=== PATIENT | male | born 1970 | race Caucasian/White ===

== ENCOUNTER 2021-02-26 04:16 | Inpatient (IN) | payer BC, OTHER ==
[2021-02-26] VITALS (16 sets, daily range): BP systolic 110–152; BP diastolic 70–105
[~2021-02-26] VITALS: Ht 185.4 cm; Wt 100.0 kg
--- NOTE | 2021-02-26 04:40 | NUR ---
PER REACH REPORT: PT GIVEN 15 MCG OF [place] AT 0403 2 GRAMS OF ANCEF AT 2137 ON TDAP BOOSTER 1 L OF NS NURSE IN FLUSHING HAD REPORTED POSSIBLE LES IN PT POLICE REPORT FILED. CASE NUMBER IS [id number] [facility] HAS ALL OF PATIENT'S PERSONAL BELONGINGS EVIDENCE EXCEPT HIS ID AND HAT GIRLFRIEND HAS PT'S PERMISSION TO RECIEVE MEDICAL UPDATES
[2021-02-26] MEDS ORDERED: FLUT1DIS INH (05:06)
[2021-02-26] MEDS ORDERED: OMEP20TA5 PO (05:06)
[2021-02-26] MEDS ORDERED: LORA10TA65 PO (05:06)
[2021-02-26] MEDS ORDERED: AMLO5TAB4 PO (05:06)
[2021-02-26 05:19] LABS: ALBUMIN 3.7 G/DL (3.4-5.0); ANION GAP 12 (8-16); BASOPHILS % (AUTO) 0.2 % (0-1); BLOOD UREA NITROGEN 13 MG/DL (7-18); BUN/CREATININE RATIO 13.8 (5.4-32.0); CHLORIDE 107 MMOL/L (99-107); CREATININE 0.94 MG/DL (0.60-1.10); EOSINOPHILS % (AUTO) 0.3 % (0-6); GLUCOSE 123 MG/DL (70-104); HEMATOCRIT 41.6 % (42.0-52.0); HEMOGLOBIN 14.1 g/dl (14.0-17.9); LYMPHOCYTES # (AUTO) 2.2 X10'3 (1.1-4.8); LYMPHOCYTES % (AUTO) 22.6 % (21-51); MEAN CORPUSCULAR HEMOGLOBIN 29.1 PG (27.0-31.0); MEAN CORPUSCULAR HGB CONC 33.9 g/dL (33.0-36.5); MEAN CORPUSCULAR VOLUME 85.7 FL (78-98); MEAN PLATELET VOLUME 7.5 FL (7.4-10.4); MONOCYTES # (AUTO) 0.8 X10'3 (0-0.9); MONOCYTES % (AUTO) 8.1 % (2-12); NEUTROPHILS # (AUTO) 6.7 X10'3 (1.8-7.7); NEUTROPHILS % (AUTO) 68.8 % (42-75); PLATELET COUNT 264 X10'3 (140-440); POTASSIUM 4.2 MMOL/L (3.5-5.1); RED BLOOD COUNT 4.85 X10'6 (4.70-6.10); RED CELL DISTRIBUTION WIDTH 13.6 % (11.5-14.5); SODIUM 142 MMOL/L (135-145); TOTAL CARBON DIOXIDE 23.5 MMOL/L (24-32); WHITE BLOOD COUNT 9.7 X10'3 (4.5-11.0); eGFR 85 ML/MIN
[2021-02-26] MEDS ORDERED: mag hydrox/Alum hydrox/simeth 30ml oral suspension PO PRN (05:25)
[2021-02-26] MEDS ORDERED: acetaminophen 325mg tablet PO PRN ×2 (05:25→12:10)
[2021-02-26] MEDS ORDERED: potassium Cl 20 mEq SR tablet PO PRN ×2 (05:25)
[2021-02-26] MEDS ORDERED: potassium Cl 40MEQ/1/2NS 520ml 520 ML IV PRN ×2 (05:25)
[2021-02-26] MEDS ORDERED: magnesium hydroxide 30ml (MOM) UD suspension PO PRN ×2 (05:25→12:10)
[2021-02-26 05:30] LABS: PARTIAL THROMBOPLASTIN TIME 20 SECONDS (22-32)
[2021-02-26] MEDS: morphine 2 MG/ML inj. syringe IV PRN ×6 (06:10→23:53)
[2021-02-26] MEDS: normal saline 1000ml 1,000 ML IV SCH ×2 (06:13→15:25)
[2021-02-26] MEDS ORDERED: midazolam 1 mg/ML 2ml injection ONE (07:00)
[2021-02-26] MEDS ORDERED: fentaNYL /PF 50mcg/ml 5ml ampule ONE (07:02)
[2021-02-26] MEDS ORDERED: 0.9 % SODIUM CHLORIDE 10 ML VIAL ONE ×2 (07:19)
[2021-02-26] MEDS ORDERED: ceFAZolin 1000mg inj ONE ×2 (07:19)
[2021-02-26] MEDS ORDERED: rocuronium 10mg/ml inj IV ONE (07:19)
[2021-02-26] MEDS ORDERED: LIDOcaine 2% (20mg/ml) 5ml vial ONE (07:19)
[2021-02-26] MEDS ORDERED: propofol inj 20 ML IV ONE (07:19)
[2021-02-26] MEDS ORDERED: ondansetron/PF 4mg/2ml inj ONE (07:22)
[2021-02-26] MEDS ORDERED: dexamethasone sod phosphate 4mg/ml inj. ONE (07:22)
[2021-02-26] MEDS ORDERED: meperidine/PF 25mg/ml syringe IV PRN ×3 (07:25)
[2021-02-26] MEDS ORDERED: labetalol 20mg/4ml (5mg/ml) syringe IV PRN (07:25)
[2021-02-26] MEDS ORDERED: ringers solution, lacted 1,000 ML IV SCH (07:25)
[2021-02-26] MEDS ORDERED: hydrALAZINE 20mg/ml inj. IV PRN (07:25)
[2021-02-26] MEDS ORDERED: ipratropium/albuterol 3ml nebule IH ONE (07:25)
[2021-02-26] MEDS ORDERED: morphine 2 MG/ML inj. syringe IV PRN (07:25)
[2021-02-26] MEDS ORDERED: morphine 4 MG/ML inj SYRINge IV PRN (07:25)
[2021-02-26] MEDS ORDERED: proCHLORperazine 10 MG/2 ml inj IV PRN (07:25)
[2021-02-26] MEDS ORDERED: ondansetron/PF 4mg/2ml inj IV PRN (07:25)
[2021-02-26] MEDS ORDERED: ketorolac trometh. 30mg/ml inj. IV ONE (07:25)
[2021-02-26] MEDS ORDERED: acetaminophen 1,000mg/100ml IV 100 ML IV PRN (07:25)
[2021-02-26] MEDS ORDERED: BUPIVAcaine/PF 2.5mg/ml (0.25%) 10ml vial ONE (07:39)
[2021-02-26] MEDS ORDERED: PANT40TA54 PO (07:51)
[2021-02-26] MEDS ORDERED: neostigmine methylsulfate 1 MG/ML 10ml vial ONE (07:55)
[2021-02-26] MEDS ORDERED: glycopyrrolate 0.2mg/ml inj ONE (07:55)
[2021-02-26] MEDS ORDERED: amLODIPine 5mg tablet PO SCH (08:00)
[2021-02-26] MEDS: K and/or MAG REPLACEMENT MC SCH ×2 (08:00→20:00)
--- NOTE | 2021-02-26 08:02 | NUR ---
FROM OR ON GURNEY. NO RESP DISTRESS. WIGGLING ALL OVER GURNEY. REORIENTED TO SITUATION. NO PAIN, BUT IS SHIVERING, SO MEDICATED WITH DEMEROL. DRESSING TO LEFT HAND CDI. DSG TO LEFT UPPER ARM ON BOTH AND AND POST SIDES. TELFA, WITH ONE SPOT OF OLD BLOOD PRESENT. SKIN WARM, DRY. VSS, IV PATENT. HEPLOCK PRESENT. DR SANTAMARIA AT BEDSIDE.
--- NOTE | 2021-02-26 08:27 | NUR ---
ASSUME CARE PT AROUSABLE TO NAME STATES HAVING PAIN TO LEFT HAND 12/08 MED WITH DEMEROL 25MG IV, DRESSING TO LEFT HAND CDI, DRESSING TO LEFT BICEP HAS SMALL DRESSING WITH SCANT AMT DRAINAGE ON DRESSING CDI. +CMS TO LEFT FINGERS AND HAND. NO DISTRESS CONT TO MONITOR. Addendum: 02/26/21 at 4333 by Lorraine Gold RN Amended: Links added.
[2021-02-26] MEDS: ondansetron/PF 4mg/2ml inj IV PRN ×2 (08:46→10:08)
--- NOTE | 2021-02-26 09:03 | NUR ---
PT MORE AWAKE VSS NO DISTRESS STATES COMFORTABLE EZEKIEL POS MEETS CRITERIA TO DC TO ROOM REPORT CALLED. Addendum: 02/26/21 at 0905 by Lorraine Gold RN Amended: Links added.
--- NOTE | 2021-02-26 09:46 | NUR ---
Page Sent PAGER ID: [phone] MESSAGE: [phone] Pardo, do you want the pt on a regular diet post op?
--- NOTE | 2021-02-26 09:46 | NUR ---
Patient in room ED 9. I have received report from Lorraine Gonzalez rn and had the opportunity to ask questions and assume patient care.
[2021-02-26] MEDS: ceFAZolin/D5W- 1GM premix 50 ML IV SCH ×3 (11:31→23:53)
[2021-02-26] MEDS: docusate sod 100mg capsule PO SCH ×2 (11:35→20:54)
[2021-02-26] MEDS ORDERED: bisacodyl 10mg suppository rectal RC PRN (12:10)
[2021-02-26] MEDS ORDERED: HYDROcodone/acetaminophen 10/325mg tab PO PRN ×2 (12:10)
[2021-02-26] MEDS ORDERED: diphenhydrAMINE 25mg capsule PO PRN (12:10)
[2021-02-26] MEDS ORDERED: albuterol 2.5 MG/3 ML nebule NEB PRN (12:15)
[2021-02-26] MEDS ORDERED: propranolol 10mg tablet PO ONE ×2 (12:40→12:55)
[2021-02-26] MEDS ORDERED: propranolol 10mg tablet PO PRN ×2 (12:40→12:54)
[2021-02-26] MEDS: loratadine 10mg tablet PO SCH (13:00)
[2021-02-26] MEDS ORDERED: gabapentin 100mg capsule PO SCH (13:00)
--- NOTE | 2021-02-26 15:16 | NUR ---
Page Sent PAGER ID: [phone] MESSAGE: Jumana Pardo pt has morphine for pain and says its not working. also says he doesn't like [place] and it doesn't work fro him either that is ordered. can I get something else for PO pain med?
--- NOTE | 2021-02-26 15:24 | NUR ---
pt refused [place] PO only wants morphine, paged the doctor about getting something else for pain. i will give 2 mg morphine per pt the 1 mg wasn't working.
--- NOTE | 2021-02-26 18:45 | NUR ---
Patient in room JOSE 353. I have received report from CASSIE Garcia and had the opportunity to ask questions and assume patient care. pt c/o pain, sitting up in bed sig other at bedside. new orders . Addendum: 02/26/21 at 1930 by Love Melissa RN Amended: Links added.
--- NOTE | 2021-02-26 18:53 | NUR ---
Problems reprioritized. Patient report given, questions answered & plan of care reviewed with johnathan MATTHEWS.
[2021-02-26] MEDS: oxyCODONE/APAP 10/325mg tablet PO PRN (19:20)
[2021-02-26] MEDS: ketorolac tromethamine 15mg/ml inj. IV PRN (19:21)
--- NOTE | 2021-02-26 19:32 | NUR ---
csm to fingers some tingling numbness, moves fingers cap refill wnl. nunez medications given, dinner arrived. Addendum: 02/26/21 at 1933 by Love Melissa RN Amended: Links added.
[2021-02-26] MEDS ORDERED: budesonide 0.5mg/2ml UD nebule IH SCH (20:00)
[2021-02-26] MEDS: gabapentin 100mg capsule PO SCH (20:54)
[2021-02-26] MEDS: lactobacillus rhamnosus 10,000 MMU CELLS/CAPSULE PO SCH (20:54)
[2021-02-26] MEDS: ascorbic acid 500mg tablet PO SCH (20:54)
[2021-02-26] MEDS ORDERED: sennosides 8.6mg tablet PO SCH (21:00)
[2021-02-27] MEDS: ketorolac tromethamine 15mg/ml inj. IV PRN ×2 (02:20→08:26)
[2021-02-27] MEDS: oxyCODONE/APAP 10/325mg tablet PO PRN ×2 (02:20→08:26)
[2021-02-27] MEDS: morphine 2 MG/ML inj. syringe IV PRN ×3 (02:26→07:31)
--- NOTE | 2021-02-27 02:31 | NUR ---
PT ABLE TO MOVE FINGERS, HAS LESS TINGLING AND MORE SENSATION. KEEPING ELEVATED ON X3 PILLOWS. Addendum: 02/27/21 at 0232 by Love Melissa RN Amended: Links added.
--- NOTE | 2021-02-27 06:12 | NUR ---
Problems reprioritized. Patient report given, questions answered & plan of care reviewed with CASSIE MARES. Addendum: 02/27/21 at 0613 by Love Melissa RN Amended: Links added.
[2021-02-27 06:24] LABS: BASOPHILS % (AUTO) 0.1 % (0-1); EOSINOPHILS % (AUTO) 0.1 % (0-6); HEMATOCRIT 39.7 % (42.0-52.0); HEMOGLOBIN 13.3 g/dl (14.0-17.9); LYMPHOCYTES # (AUTO) 1.8 X10'3 (1.1-4.8); LYMPHOCYTES % (AUTO) 14.3 % (21-51); MEAN CORPUSCULAR HEMOGLOBIN 28.7 PG (27.0-31.0); MEAN CORPUSCULAR HGB CONC 33.5 g/dL (33.0-36.5); MEAN CORPUSCULAR VOLUME 85.9 FL (78-98); MEAN PLATELET VOLUME 7.7 FL (7.4-10.4); MONOCYTES # (AUTO) 1.3 X10'3 (0-0.9); MONOCYTES % (AUTO) 10.2 % (2-12); NEUTROPHILS # (AUTO) 9.7 X10'3 (1.8-7.7); NEUTROPHILS % (AUTO) 75.3 % (42-75); PLATELET COUNT 263 X10'3 (140-440); RED BLOOD COUNT 4.63 X10'6 (4.70-6.10); RED CELL DISTRIBUTION WIDTH 13.9 % (11.5-14.5); WHITE BLOOD COUNT 12.9 X10'3 (4.5-11.0)
[2021-02-27 07:00] VITALS: BP 116/83
[2021-02-27 07:04] LABS: ALANINE AMINOTRANSFERASE 19 U/L (12-78); ALBUMIN 3.4 G/DL (3.4-5.0); ALKALINE PHOSPHATASE 62 IU/L (46-116); ANION GAP 12 (8-16); ASPARTATE AMINO TRANSFERASE 20 U/L (10-37); BILIRUBIN,TOTAL 0.9 MG/DL (0.1-1.0); BLOOD UREA NITROGEN 19 MG/DL (7-18); BUN/CREATININE RATIO 15.6 (5.4-32.0); CALCIUM 8.6 MG/DL (8.5-10.1); CHLORIDE 104 MMOL/L (99-107); CREATININE 1.22 MG/DL (0.60-1.10); GLUCOSE 127 MG/DL (70-104); POTASSIUM 4.3 MMOL/L (3.5-5.1); SODIUM 140 MMOL/L (135-145); TOTAL CARBON DIOXIDE 24.2 MMOL/L (24-32); TOTAL PROTEIN 6.8 G/DL (6.4-8.2); eGFR 63 ML/MIN
[2021-02-27] MEDS: lactobacillus rhamnosus 10,000 MMU CELLS/CAPSULE PO SCH (07:35)
[2021-02-27] MEDS: docusate sod 100mg capsule PO SCH (07:35)
[2021-02-27] MEDS: gabapentin 100mg capsule PO SCH ×2 (07:36→13:28)
[2021-02-27] MEDS: ascorbic acid 500mg tablet PO SCH (07:36)
[2021-02-27] MEDS: loratadine 10mg tablet PO SCH (07:36)
[2021-02-27] MEDS: ceFAZolin/D5W- 1GM premix 50 ML IV SCH (07:38)
[2021-02-27] MEDS ORDERED: multivitamins, therapeutics tablet PO SCH (08:00)
[2021-02-27] MEDS ORDERED: amLODIPine 5mg tablet PO SCH (08:00)
[2021-02-27] MEDS ORDERED: pantoprazole 40mg Tablet.DR PO SCH (08:00)
[2021-02-27] MEDS: K and/or MAG REPLACEMENT MC SCH (08:00)
[2021-02-27 11:00] VITALS: BP 125/83
[2021-02-27] MEDS ORDERED: morphine 2 MG/ML inj. syringe IV PRN (12:30)
[2021-02-27] MEDS ORDERED: oxyCODONE/APAP 10/325mg tablet PO PRN (12:30)
[2021-02-27] MEDS ORDERED: OXYC1TAB17 PO (13:11)
[2021-02-27] MEDS ORDERED: KETO10TA2 PO (13:11)
[2021-02-27] MEDS ORDERED: CEPH-585 PO (13:11)
[2021-02-27] MEDS ORDERED: GABA-530 PO (13:11)
--- NOTE | 2021-02-27 13:47 | NUR ---
Pt stated he is missing a baseball cap and his 'real ID". Lorraine Ragland RN, is in Recovery Room today, but stated she met the patient upon admit to the ER from [facility] yesterday. The pt was only in a hospital gown with no belongings, upon arriveal. She stated she was told by transporters that the [facility]'s Dept kept all his belongings. Pt's was notified of Lorraine's knowledge. Addendum: 02/27/21 at 1411 by Sania Pena RN Lorraine Armenta RN spoke with the pt's who was in pt's room, via telephone. stated her friend involved w/ the flight crew did state the pt's belongings were delivered to ER, and not to the [facility] Dept. Lorraine Armenta RN remembered the pt stated his belongings were w/ [facility] Dept, and agreed to again search for belongings as well. I requsted to the ER, RR, and EVS to continue searching for his belongings, and searched this unit for his belongings, but none were yet found.
--- NOTE | 2021-02-27 14:21 | NUR ---
stated belongings were given to Melissa Martinez RN in the ER upon arrival. Nsg Chief Of Hospital Medicine, Jess, was made aware and she agreed to f/u.
--- NOTE | 2021-02-27 14:51 | NUR ---
Recovery Room charge called, states pt's belongings are at [facility]. Wet Trimmer department (Officer Gilberto) stated that [facility] picked up all pt's belongings and were holding them there for pt. Please pass the message along to pt and . Paradise the pocket secretary assembler calling to pass message along.
== END 2021-02-27 17:25 | disposition home or self-care (01) | DRG 513 ==
LOC: ER 04:16 → EEVIPCON 04:16 → UNDOADMIN 05:27 → ED HOLD 05:27 → SUR 3N 05:28 → ED HOLD 05:28
PROVIDERS: ADMIT Internal Medicine; ATTEND Family Medicine
PROC: 0PHV34Z Insertion of Internal Fixation Device into Left Finger Phalanx, Percutaneous Approach (ICD-10-PCS; 2021-02-26)
PROC: 0HBGXZZ Excision of Left Hand Skin, External Approach (ICD-10-PCS; 2021-02-26)
PROC: 0PHQ34Z Insertion of Internal Fixation Device into Left Metacarpal, Percutaneous Approach (ICD-10-PCS; principal; 2021-02-26 06:50)
DX: S62.391B Other fracture of second metacarpal bone, left hand, initial encounter for open fracture (principal); S62.613B Displaced fracture of proximal phalanx of left middle finger, initial encounter for open fracture; S41.132A Puncture wound without foreign body of left upper arm, initial encounter; S62.333B Displaced fracture of neck of third metacarpal bone, left hand, initial encounter for open fracture; I10 Essential (primary) hypertension; F41.9 Anxiety disorder, unspecified; X95.9XXA Assault by unspecified firearm discharge, initial encounter; Y93.89 Activity, other specified; Y99.8 Other external cause status; Y92.89 Other specified places as the place of occurrence of the external cause; Z79.899 Other long term (current) drug therapy
CPT/HCPCS: Z7506; Z7508; 36415; 71045; 73060; 73120; 73130; 80048; 80053; 85025; 85610; 85730; 87081; 94760; 97110; 97161; 97530; 99285; A4215; A4618; A6222; A7000; C1713; G0378; J0690; J1100; J1885; J2001; J2175; J2250; J2270; J2405; J2704; J2710; J3010; J3490; J7030; J7120